=== PATIENT | female | born 1990 | race Asian ===

== ENCOUNTER 2019-02-12 22:16 | Emergency (ER) | payer SELFPAY ==
[~2019-02-12] VITALS: Ht 160 cm; Wt 47.6 kg
[2019-02-12] MEDS ORDERED: SILVER SULFADIAZINE CREAM 25 GM TUBE ONE (22:43)
[2019-02-12] MEDS ORDERED: HYDROCODONE/APAP 5/325MG 1 EACH TABLET ONE (22:47)
[2019-02-12] MEDS ORDERED: TDAP [DIPH/PERTUSSIS/TET] 0.5 ML VIAL IM ONE ×2 (22:47→23:00)
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
[2019-02-12] MEDS ORDERED: HYDROCODONE/APAP 5/325MG 1 EACH TABLET PO ONE (23:00)
[2019-02-12 23:40] VITALS: BP 132/84
--- NOTE | 2019-02-12 23:40 | NUR ---
Patient discharged to home in stable condition. Written and verbal after care instructions given. Patient verbalizes understanding of instruction.
[2019-02-13] MEDS ORDERED: SILVER SULFADIAZINE 50 GM JAR TP ONE (23:00)
== END 2019-02-12 23:40 | disposition home or self-care (01) ==
LOC: ER 22:19
DX: T22.242A Burn of second degree of left axilla, initial encounter (principal); X08.8XXA Exposure to other specified smoke, fire and flames, initial encounter; Y93.89 Activity, other specified; Y92.89 Other specified places as the place of occurrence of the external cause; Y99.8 Other external cause status
CPT/HCPCS: 16020; 90471; 90715; 99284; A6403